=== PATIENT | male | born 1955 | race American Indian/Alaskan Native ===

== ENCOUNTER 2017-05-17 12:16 | Outpatient (CLI) | payer MEDICAID ==
[2017-05-17 13:01] LABS: Blood Urea Nitrogen 22 mg/dL (9-20)
--- NOTE | 2017-05-17 13:23 | XRay Report ---
Chest 2 views: History: Numbness of infiltrate right infrahilar region. Findings: Cardiomegaly. Trachea is midline. No consolidation, pneumothorax or pleural effusion. Impression: Cardiomegaly. No acute lung changes.
--- NOTE | 2017-05-17 14:34 | Cat Scan Report ---
CT scan of chest without and with contrast injection: History: Chest mass. Findings: No endobronchial or mediastinal mass. No mediastinal, hilar or axillary adenopathy. No pleural or pericardial effusion. No lung mass. No consolidation no discrete nodularity. Impression: No mediastinal mass. No lung mass.
== END 2017-05-17 12:17 | disposition home or self-care (01) ==
LOC: CT 12:16
PROVIDERS: ATTEND General Practice
DX: I51.7 Cardiomegaly (principal); R22.2 Localized swelling, mass and lump, trunk
CPT/HCPCS: 36415; 71020; 71270; 82565; 84520; Q9967

== ENCOUNTER 2017-07-10 07:01 | Day surgery (SDC) | payer MEDICAID ==
[2017-07-10] MEDS ORDERED: ECOTRIN PO ONE ×2 (07:25→08:38)
[2017-07-10] MEDS ORDERED: NACL 0.9% 500 ML 500 ML IV SCH (08:00)
[2017-07-10 08:18] LABS: Basophils % (Auto) 0.8 % (0.0-1.8); Eosinophils % (Auto) 5.3 % (0.0-4.3); Hematocrit 34.7 % (35.5-45.6); Hemoglobin 11.5 gm/dl (11.8-15.2); Mean Corpuscular HGB Conc 33 % (32-34); Mean Corpuscular Hemoglobin 31 pg (28-32); Mean Corpuscular Volume 92 fl (84-94); Platelet Count 235 K/mm3 (140-440); Red Blood Count 3.77 M/mm3 (3.65-5.03); Red Cell Distribution Width 13.4 % (13.2-15.2)
[2017-07-10 08:25] LABS: INR 1.06 (0.87-1.13)
[2017-07-10 08:32] LABS: Anion Gap 16 mmol/L; BUN/Creatinine Ratio 20; Blood Urea Nitrogen 22 mg/dL (9-20); Calcium 9.2 mg/dL (8.4-10.2); Carbon Dioxide 29 mmol/L (22-30); Chloride 100.6 mmol/L (98-107); Glucose 122 mg/dL (75-100); Potassium 3.6 mmol/L (3.6-5.0); Sodium 142 mmol/L (137-145)
[2017-07-10] MEDS ORDERED: NACL 0.9% 500 ML 500 ML ONE (08:37)
[2017-07-10] MEDS ORDERED: HEPARIN 10,000 UNITS/10 ML ONE (09:42)
[2017-07-10] MEDS ORDERED: CALAN ONE (09:42)
[2017-07-10] MEDS ORDERED: NITROGLYCERIN SYRINGE 3 ML ONE (09:42)
[2017-07-10] MEDS ORDERED: XYLOCAINE 2% INFILTRATI ONE (09:42)
[2017-07-10] MEDS ORDERED: HEPARIN/NS 5000 UNIT/500ML(CATH LAB) 1,000 ML IR ONE (09:42)
[2017-07-10] MEDS ORDERED: VERSED ONE (09:43)
[2017-07-10] MEDS ORDERED: SUBLIMAZE ONE (09:43)
--- NOTE | 2017-07-10 10:18 | Short Stay Summary ---
Short Stay Documentation Date of service: 07/10/17 - History H&P: obtained from office - Allergies and Medications Current Medications: Allergies No Known Allergies Allergy (Verified 07/26/15 07:06) Home Medications Medication Instructions Recorded Confirmed Last Taken Type Simvastatin [Zocor TAB] 20 mg PO QHS 07/26/15 07/10/17 07/10/17 History Tamsulosin [Flomax] 0.4 mg PO QDAY 07/26/15 07/10/17 07/10/17 History Valsartan/Hydrochlorothiazide 1 tab PO DAILY 07/26/15 07/10/17 07/09/17 History [Diovan Hct 320-25 mg] Ergocalciferol [Vitamin D2] 1 cap PO QWEEK 07/10/17 07/10/17 2 Weeks Ago History ~06/26/17 Furosemide [Lasix TAB] 40 mg PO DAILY 07/10/17 07/10/17 07/10/17 History ISOSORBIDE MONOnitrate [Imdur ER] 60 mg PO QDAY 07/10/17 07/10/17 07/10/17 History Magnesium 250 mg PO DAILY 07/10/17 07/10/17 07/10/17 History Nitroglycerin [Nitrostat] 0.4 mg SL DAILY PRN 07/10/17 07/10/17 3 Weeks Ago History ~06/19/17 Pioglitazone HCl/Metformin HCl 1 each PO BID 07/10/17 07/10/17 07/09/17 History [Pioglitazone-Metformin 15-500] Active Medications Sodium Chloride (Nacl 0.9% 500 Ml) 500 mls @ 50 mls/hr IV DIRECT NATHANIEL Stop: 07/10/17 17:59 Last Admin: 07/10/17 08:40 Dose: 50 mls/hr - Physical exam General appearance: no acute distress Integumentary: no rash HEENT: Atraumatic Lungs: Clear to auscultation Breasts: deferred Heart: Regular rate Gastrointestinal: normal Male Genitourinary: deferred Female Genitourinary: deferred Rectal Exam: deferred Extremities: no ischemia - Brief post op/procedure progress note Date of procedure: 07/10/17 Pre-op diagnosis: Chest Pain Post-op diagnosis: same Procedure: LHC and LV gram Anesthesia: MAC Findings: See report Surgeon: WILLIAMS JAIME Estimated blood loss: none Pathology: none Condition: stable - Hospital course Hospital course: Uneventful - Disposition Condition at discharge: Good Disposition: DC-01 TO HOME OR SELFCARE Short Stay Discharge Plan Activity: advance as tolerated Weight Bearing Status: Weight Bear as Tolerated Diet: low fat, low cholesterol, low salt Wound: keep clean and dry Special Instructions: hold Metformin (for 48 hours) Follow up with: PINEDA GLASS MD [Primary Care Provider] - 7 Days
--- NOTE | 2017-07-10 10:42 | Cardiac Catherization Report ---
LEFT HEART CATHETERIZATION ORDERING PHYSICIAN: Kyree Almendarez MD INDICATION FOR PROCEDURE: Recurrent chest pain. PROCEDURES PERFORMED: 1. Selective left and right coronary angiography. 2. Left ventriculography. DESCRIPTION OF PROCEDURE: After obtaining written consent, the patient was draped using sterile technique. A 2% lidocaine was injected into the right wrist after documenting a negative Danny test. A 6-[place] vascular sheath was inserted into the right radial artery. A 6-[place] JL3.5 catheter was used to selectively engage the left coronary artery. A 6-[place] JR4 catheter was used to selectively engage the right coronary artery. A 6-[place] JR4 catheter was used to hand inject the left ventriculogram. No complications occurred during the procedure. Hemostasis was achieved at the end of the procedure using manual pressure. Specimen removed was none. Estimated blood loss was minimal. No complications occurred during the procedure. FINDINGS: HEMODYNAMICS: Aortic pressure 129/85. LV systolic pressure 128 mmHg. LV end diastolic pressure was 20 mmHg. CARDIAC STRUCTURES: The left ventricular ejection fraction is estimated at 50%. CORONARY ANATOMY: 1. The left main has mild luminal irregularities. 2. The left anterior descending artery has mild luminal irregularities with evidence of a focal 30-40% ostial stenosis. 3. The left circumflex artery has mild diffuse nonobstructive luminal irregularities. 4. The right coronary artery has mild diffuse nonobstructive luminal irregularities. IMPRESSION: 1. Nonobstructive coronary artery disease with evidence of a 30-40% ostial LAD that is unchanged from 2015. 2. Normal left ventricular size with an ejection fraction of 50%. 3. LVEDP measured at 20 mmHg. RECOMMENDATIONS: Continue current management. JOB# [id number]/JAYESH
[2017-07-10 12:16] VITALS: BP 119/61
== END 2017-07-10 12:50 | disposition home or self-care (01) ==
LOC: CATHLABREC 07:01
PROVIDERS: ATTEND Internal Medicine
DX: I25.118 Atherosclerotic heart disease of native coronary artery with other forms of angina pectoris (principal); I24.0 Acute coronary thrombosis not resulting in myocardial infarction; I10 Essential (primary) hypertension; I42.9 Cardiomyopathy, unspecified; E78.5 Hyperlipidemia, unspecified; E11.9 Type 2 diabetes mellitus without complications; E66.9 Obesity, unspecified; Z68.41 Body mass index [BMI] 40.0-44.9, adult; Z79.899 Other long term (current) drug therapy; Z82.49 Family history of ischemic heart disease and other diseases of the circulatory system
CPT/HCPCS: 36415; 80048; 85025; 85610; 85730; 93005; 93010; 93458; 99156; C1894; J1644; J2250; J3010; J7040; Q9967